=== PATIENT | male | born 1950 | race Caucasian/White ===

== ENCOUNTER 2016-09-25 05:47 | Inpatient (IN) | payer OTHER ==
[2016-09-25] MEDS ORDERED: LR 1,000 ML IV ONE (06:30)
[2016-09-25] MEDS ORDERED: LIDOCAINE 1% 5 ML SDV ID PRN (06:30)
[2016-09-25] MEDS ORDERED: LIDOCAINE 1% 2 ML INJ ONE (06:31)
[2016-09-25] MEDS ORDERED: THROMBIN (BOVINE) 5,000 UNIT VIAL TP ONE (06:44)
[2016-09-25] MEDS ORDERED: CALCIUM CHLORIDE 1 GM/10 ML INJ ONE (06:44)
[2016-09-25] MEDS ORDERED: ceFAZolin 1 GM/5 ML SYR ONE (06:46)
[2016-09-25] MEDS ORDERED: ACETAMINOPHEN 325 MG TAB PO ONE (07:00)
[2016-09-25] MEDS ORDERED: CHLORHEXIDINE GLUC HIBICLENS 118 ML BTL TP ONE (07:00)
[2016-09-25] MEDS ORDERED: DEXAMETHASONE 4 MG/ML VIAL IVP ONE (07:00)
[2016-09-25] MEDS ORDERED: [UNRECOGNIZED DRUG - REMARK] IV ONE (07:00)
[2016-09-25] MEDS ORDERED: ROPI/epiNEPH/KETOROLAC JOINT COCKTAIL IU ONE (07:00)
[2016-09-25] MEDS ORDERED: ceFAZolin 2 GM/DEXTROSE 100 ML IV ONE (07:00)
[2016-09-25] MEDS ORDERED: FAMOTIDINE 20 MG TAB PO ONE (07:00)
[2016-09-25] MEDS ORDERED: PROPOFOL/EMULSION 500 MG/50 ML BOTTLE IV ONE ×3 (07:12→09:54)
[2016-09-25] MEDS ORDERED: MIDAZOLAM 2 MG/2 ML VIAL ONE (07:13)
[2016-09-25] MEDS ORDERED: PROPOFOL 200 MG/20 ML VIAL ONE (07:13)
[2016-09-25] MEDS ORDERED: LIDOCAINE 2% 5 ML SDV ONE (07:14)
[2016-09-25] MEDS ORDERED: ONDANSETRON 4 MG/2 ML VIAL ONE (09:22)
[2016-09-25] MEDS ORDERED: fentaNYL 100 MCG/2 ML INJ ONE ×2 (09:25→11:04)
[2016-09-25] MEDS ORDERED: ROPIVACAINE HCL 150 MG/30 ML INJ ONE (10:45)
[2016-09-25] MEDS ORDERED: BISACODYL 10 MG SUPP PR PRN (11:01)
[2016-09-25] MEDS ORDERED: PROMETHAZINE HCL 25 MG SUPPR PR PRN (11:01)
[2016-09-25] MEDS ORDERED: ONDANSETRON 4 MG/2 ML VIAL IVP PRN (11:01)
[2016-09-25] MEDS ORDERED: diphenhydrAMINE 25 MG CAP PO PRN (11:01)
[2016-09-25] MEDS ORDERED: PHARMACY PAIN CONSULT 1 EA MISC PRN (11:01)
[2016-09-25] MEDS ORDERED: ONDANSETRON DISINTEGRATING 4 MG TAB PO PRN (11:01)
[2016-09-25] MEDS ORDERED: POLYETHYLENE GLYCOL 3350 17 GM PKT PO PRN (11:01)
[2016-09-25] MEDS ORDERED: MAGNESIUM HYDROXIDE 30 ML UDCUP PO PRN (11:01)
[2016-09-25] MEDS ORDERED: FAMOTIDINE 20 MG TAB PO PRN (11:01)
[2016-09-25] MEDS ORDERED: DIPHENOXYLATE/ATROPINE LOMOTIL 1 TAB PO PRN (11:01)
[2016-09-25] MEDS ORDERED: LACTULOSE 20 GM/30 ML UDCUP PO PRN (11:01)
[2016-09-25] MEDS ORDERED: CYCLOBENZAPRINE 10 MG TAB PO PRN ×2 (11:01→11:05)
[2016-09-25] MEDS ORDERED: METOCLOPRAMIDE 10 MG/2 ML VIAL IVP PRN (11:01)
--- NOTE | 2016-09-25 11:10 | POSTOPPROG ---
Post Op Note Date of Operation: 09/25/16 Surgeon: Tisha Merida Sas Sql Developer: Nelia Rene PA-C Anesthesia: Spinal Pre-op Diagnosis: left knee osteoarthritis Post-op Diagnosis: left knee osteoarthritis Indication: knee pain Procedure: left TKA Inf/Abcess present in the surg proc area at time of surgery?: No EBL: 50-100 Complications: none Specimen(s): soft tissue sent, possible gout
--- NOTE | 2016-09-25 11:12 | SOAPPROG ---
SOAP Progress Note Assessment/Plan: Assessment/Plan: 66y/o male s/p left TKA - stable and doing well - orders as written - PT/OT, no knee flexion beyond 90 degrees - active care system, ASA starts tomorrow - xrays pending - call with issues or concerns 09/25/16 11:10 Subjective: Has knee pain Objective: NAD, waking from anesthesia VSS face symmetric MAEx4 incision clean, dressed ICD10 Worksheet Patient Problems: Problems Problem Status Onset Osteoarthritis Acute - ICD10 Problem Qualifiers (1) Osteoarthritis Qualifiers: Osteoarthritis location: O Osteoarthritis type: O Spinal region: S Spinal osteoarthritis complication: S Laterality: L
[2016-09-25] MEDS ORDERED: HYDROmorphONE/DILAUDID 2 MG/ML INJ ONE (11:19)
[2016-09-25] MEDS ORDERED: oxyCODONE IR 5 MG TAB ONE (12:04)
[2016-09-25] MEDS: ACETAMINOPHEN 325 MG TAB PO SCH ×3 (13:05→23:40)
[2016-09-25] MEDS: LR 1,000 ML IV SCH ×2 (13:05→20:25)
[2016-09-25] MEDS: oxyCODONE IR 5 MG TAB PO PRN ×3 (14:00→20:57)
[2016-09-25] MEDS: ceFAZolin 2 GM/DEXTROSE 100 ML IV SCH ×2 (14:57→23:39)
[2016-09-25] MEDS: SENNOSIDES/DOCUSATE SODIUM TAB PO SCH (20:25)
[2016-09-26] MEDS: oxyCODONE IR 5 MG TAB PO PRN ×5 (02:28→22:18)
[2016-09-26 05:33] LABS: HEMATOCRIT 31.2 % (40.0-51.0); HEMOGLOBIN 10.6 g/dL (13.7-17.5)
[2016-09-26] MEDS: ACETAMINOPHEN 325 MG TAB PO SCH ×4 (05:59→23:18)
--- NOTE | 2016-09-26 07:37 | GOP ---
[f rep st] OPERATIVE REPORT DATE OF OPERATION: 09/25/2016 SURGEON: Tisha Merida MD TIEING MACHINE OPERATOR: Nelia Rene, PAC ANESTHESIA: Spinal with adductor canal block and sedation. PREOPERATIVE DIAGNOSIS: Severe osteoarthritis, left knee. Painful retained hardware, left proximal tibia. POSTOPERATIVE DIAGNOSIS: Severe osteoarthritis, left knee. Painful retained hardware, left proxima l tibia. PROCEDURE PERFORMED: Left total knee arthroplasty with hardware removal, left proximal tibia. FINDINGS: Preoperative x-rays of the patient's left knee demonstrated severe osteoarthritis. In ad dition, the patient had a plate and screws retained in the proximal tibia. At the time of surgery t he plate and screws were removed from the proximal tibia and then a total knee arthroplasty was perf ormed. A [employer] II total knee arthroplasty was performed. The total knee was alvarez ented into place. A size 6 femoral component was utilized and a size 5 tibial base plate with a 9 m m thick cross-linked polyethylene insert was used on the tibial side. This 35 mm round patellar com ponent was cemented into place on the patella. Following implantation of the components, the patien t achieved full extension and 135 degrees of flexion. The knee was stable to varus and valgus stres sing both in extension and flexion. ESTIMATED BLOOD LOSS: Less than 100 cc. DESCRIPTION OF PROCEDURE: The patient was taken to the operating room, placed in supine position on the operating table. Following placement of a spinal block and induction of adequate sedation, the knee and leg were prepped and draped in the usual sterile manner. The patient received 2 g of IV A ncef. The leg was elevated and exsanguinated and the tourniquet inflated to 275 mmHg. The [employer] [place] was used throughout the procedure for positioning. A midline incision was made extending from 2 fingerbreadths superior to the superior pole of the patella, distally to the tibial tubercle. Incision was carried down through the subcutaneous tissue to the retinaculum of the knee. An inci zayda was made in the anterior compartment along the subcutaneous border of the tibia to expose the p late which was positioned on the lateral aspect of the proximal tibia. Once the plate was exposed, the retained screws were removed and then the plate was removed without difficulty. Our attention w as then turned to the total knee. A medial parapatellar arthrotomy was performed. The patella was everted laterally. There was abundant scar tissue in the knee joint due to the patient's previous s urgery. Extensive releases of the scar was performed. Once this was done, the patella could be boogie rted and the thickness was measured. A 9 mm thick cut was taken from the patella. The protector pl ate was placed on the cut surface and then the patella was placed in the lateral gutter. The knee w as flexed up and the distal femoral drill hole was made. Intramedullary referencing was utilized fo r the distal femoral cut. The cutting jig was positioned and pinned and then a +2 cut was taken fro m the distal femur. The sizer was used on the femur and the 6 and 7 femoral components were compare d for appropriate fit. The 6 was chosen as the best fit. The size 6 cutting block was pinned into place on the distal femur and then the anterior, posterior and chamfer cuts were made. The cutting block was removed. Osteophytes were removed from around the edges of the femur. The notch was then cleared with the reamer followed by the Box osteotome. Next, our attention was turned to the tibia . The menisci were removed and appropriate soft tissue releases were performed. The tibia was retr acted anteriorly. Again, intramedullary referencing was utilized for the tibial cut. The tibial cu tting block was aligned properly and then pinned and the tibial cut was made. Using the lollipop fo r sizing and comparing flexion, extension gaps, the patient was noted to have significant tightness in extension so an additional 2 mm were taken from the proximal tibia. Our trial reduction was then performed. The tibial components were compared and the size 5 was the best fit so this was pinned into position and the size 6 femur was placed on the distal femur. The 9 mm thick polyethylene was inserted and the patient achieved full extension and excellent flexion with good stability. The pat pao was then prepared. It was drilled and a trial component was placed on the patella as well. Th e patella tracked well. All the trial components were removed and the bony surfaces were thoroughly irrigated and dried and then the cement was mixed. The tibial component was cemented into place fo llowed by the femoral component and the patellar component. The knee was brought into extension wit h a 9 mm thick polyethylene insert in place. All excess cement was removed from around the edges of the components. Once the cement was dried, the knee was flexed up and the trial polyethylene was r emoved and the permanent polyethylene insert was opened and placed in the metal backing. Again, the knee was taken through range of motion and noted to be stable with excellent flexion and extension. The wound was then thoroughly irrigated out. Joint cocktail had been previously injected into the posterior joint capsule and into the extensor mechanism and the retinaculum of the knee was closed using #2 FiberWire in interrupted fashion. The subcutaneous tissues were closed using 2-0 Vicryl. The skin was closed using karen. Sterile dressings were applied. The patient tolerated the proce dure well and there were no complications. Estimated blood loss minimal. Final sponge, needle coun ts were correct. The patient was transported to the recovery room in good condition. Platelet gel was used in the deep portions of the wound to enhance wound healing. /[id number]/MODL
[2016-09-26] MEDS: SENNOSIDES/DOCUSATE SODIUM TAB PO SCH ×2 (08:18→23:17)
[2016-09-26] MEDS: ASPIRIN 325 MG TAB PO SCH (08:18)
[2016-09-26] MEDS: FERROUS SULFATE 140 MG TAB.ER PO SCH (08:18)
--- NOTE | 2016-09-26 12:20 | SOAPPROG ---
SOAP Progress Note Assessment/Plan: Assessment/Plan: 66y/o male day#1 left TKA - stable and doing well - PT/OT, no knee flexion beyond 90 degrees; limit knee flexion to slow down incisional drainage, dressing changes prn - active care system, ASA for DVT prevention - xrays show no obvious complications - anticipate patient will be ready for discharge tomorrow pending clinical course - patient seen by Dr. Merida as well - call with issues or concerns 09/26/16 12:18 09/26/16 12:20 Subjective: Pain well controlled. Eating, drinking, voiding, no BM yet. Objective: Vital Signs Temp Pulse Resp BP Pulse Ox 36.8 C 70 16 121/59 H 94 09/26/16 11:30 09/26/16 11:30 09/26/16 11:30 09/26/16 11:30 09/26/16 11:30 Laboratory Results 09/26/16 04:25 09/25/16 09/26/16 09/27/16 05:59 05:59 05:59 Intake Total 4500 Output Total 1400 450 Balance 3100 -450 NAD, well appearing, no distress EOMi, face symmetric MAEx4 left knee extension 5, flexion 85 incision CDI, old drainage on bandage ICD10 Worksheet Patient Problems: Problems Problem Status Onset Osteoarthritis Acute - ICD10 Problem Qualifiers (1) Osteoarthritis Qualifiers: Osteoarthritis location: O Osteoarthritis type: O Spinal region: S Spinal osteoarthritis complication: S Laterality: L
[2016-09-27 03:45] VITALS: RESP 16; TEMP 98.5; O2SAT 95
[2016-09-27] MEDS: oxyCODONE IR 5 MG TAB PO PRN ×3 (03:48→12:40)
[2016-09-27 05:06] LABS: HEMATOCRIT 31.7 % (40.0-51.0); HEMOGLOBIN 10.9 g/dL (13.7-17.5)
[2016-09-27] MEDS: ACETAMINOPHEN 325 MG TAB PO SCH ×2 (05:54→11:48)
[2016-09-27 07:26] VITALS: BP 122/65; PULSE 72
[2016-09-27] MEDS: SENNOSIDES/DOCUSATE SODIUM TAB PO SCH (08:59)
[2016-09-27] MEDS: FERROUS SULFATE 140 MG TAB.ER PO SCH (08:59)
[2016-09-27] MEDS: ASPIRIN 325 MG TAB PO SCH (09:00)
--- NOTE | 2016-09-27 11:48 | SOAPPROG ---
SOAP Progress Note Assessment/Plan: Assessment/Plan: 66y/o male day#2 left TKA - stable and doing well - PT/OT, no knee flexion beyond 90 degrees; limit knee flexion to slow down incisional drainage, dressing changed with mild to moderate old drainage - active care system, ASA for DVT prevention - xrays show no obvious complications, good hardware placement - home with home health care today, return precautions discussed - patient discussed with Dr. Merida - call with issues or concerns 09/27/16 11:45 Subjective: Feeling really well. Eating, drinking, voiding, pain well controlled. Objective: Vital Signs Temp Pulse Resp BP Pulse Ox 36.9 C 72 16 122/65 H 95 09/27/16 07:26 09/27/16 07:26 09/27/16 07:26 09/27/16 07:26 09/27/16 07:26 Laboratory Results 09/27/16 04:40 09/26/16 09/27/16 09/28/16 05:59 05:59 05:59 Intake Total 4500 500 Output Total 1400 1950 Balance 3100 -1450 NAD, well appearing, no distress EOMi, face symmetric MAEx4, left lower extremity neurovascularly intact incision CDI, very mild serous drainage from superior portion of incision new sterile dressing placed ICD10 Worksheet Patient Problems: Problems Problem Status Onset Osteoarthritis Acute - ICD10 Problem Qualifiers (1) Osteoarthritis Qualifiers: Osteoarthritis location: O Osteoarthritis type: O Spinal region: S Spinal osteoarthritis complication: S Laterality: L
--- NOTE | 2016-09-27 11:59 | PDIAF ---
- Diagnosis Diagnosis: osteoarthritis Code Status: Full Code - Medication Management Discharge Medications: Medications to Continue on Transfer Cyclobenzaprine [Flexeril 10 MG (*)] 2.5 - 5 mg PO DAILY PRN 08/22/16 [Last Taken 09/18/16] Acetaminophen [Tylenol 325mg (*)] 650 mg PO Q6HRS #0 tab 09/27/16 [Last Taken Unknown] Aspirin 81 mg PO DAILY #0 tablet 09/27/16 [Last Taken Unknown] Ferrous Sulfate [Slow Fe 140 MG (*)] 140 mg PO DAILY #0 tab.er 09/27/16 [Last Taken Unknown] Naproxen Sodium [Aleve 220 MG (*)] 220 mg PO BID #0 tab 09/27/16 [Last Taken Unknown] oxyCODONE IR [Oxycodone Ir (*)] 5 - 10 mg PO Q3HRS PRN #0 tab 09/27/16 [Last Taken Unknown] Discharge Medications: Refer to the Discharge Home Medication list for PRN reason. - Orders Services needed: Home Care, Registered Nurse, Physical Therapy, Occupational Therapy Home Care Face to Face: I certify that this patient was under my care and that I had the required [id number] encounter meeting the encounter requirements on the discharge day. My findings support the fact that the patient is homebound as defined in CMS Chapter 7 Medicare Benefits Manual 30.1.1, The condition of the patient is such that there exists a normal inability to leave home and consequently, leaving home would require a considerable and taxing effort. Diet Recommendation: no restrictions on diet Diet Texture: Regular Texture Diet Tejas Stockings Discontinue Date: active care system Wound Care Instructions: keep incision clean and dry. dressing change in 2-3 days; ok for water proof dressing if incisional drainage has stopped Sutures/Karen Site: keep incision clean and dry. karen will be removed at post-op visit Activity/Weight Bearing Restrictions: weight bearing as tolerated - Follow Up Care Current Providers and Referrals: RAGINI ABREU [Other]
--- NOTE | 2016-09-27 19:01 | GDS ---
[f rep st] DISCHARGE SUMMARY ADMISSION DIAGNOSIS: Left knee osteoarthritis. DISCHARGE DIAGNOSIS: Left knee osteoarthritis. HOSPITAL COURSE: The patient is a 66-year-old gentleman who is well known to our service for ongoin g left knee pain and osteoarthritis. After careful decision making and discussion, he underwent a l eft total knee arthroplasty by Dr. Tisha Merida on September 25, 2016. He tolerated the procedure we ll without complication, and was transferred to the floor when PACU criteria was met. He worked wit h physical therapy and occupational therapy and continued to do well. He had normal return of bowel and bladder function. His pain was well managed. On September 27, 2016, he was in good and stable condi tion, and ready for discharge home with home health care. He was he was given strict instruction to call with any new or worsening symptoms as well as instructions to keep his incision clean and dry. He will follow up in our office in 2 weeks, sooner with any issues or changes. All of his questio ns were answered prior to discharge home. /[id number]/MODL
== END 2016-09-27 13:43 | disposition home health service (06) | DRG 470 ==
LOC: F3N 05:47
PROVIDERS: ADMIT Orthopaedic Surgery; ATTEND Orthopaedic Surgery
DX: M17.12 Unilateral primary osteoarthritis, left knee (principal); K21.9 Gastro-esophageal reflux disease without esophagitis
CPT/HCPCS: 97116-GP; 97161-GP; 97165-GO; C1713; G8978-GP-CK; G8979-GP-CI; G8980-GP-CI; G8987-GO-CI; G8988-GO-CI; G8989-GO-CI; J0171; J0690; J1100; J1170; J1885; J2250; J2405; J2704; J2795; J3010